=== PATIENT | male | born 1960 | race Hispanic/Latino ===

== ENCOUNTER 2018-12-07 10:09 | Emergency (ER) | payer SELFPAY ==
[2018-12-07] MEDS ORDERED: SODIUM CHLORIDE 0.9% 1000 ML 1,000 ML IV ONE ×2 (11:28→11:32)
--- NOTE | 2018-12-07 11:32 | Emergency Department Report ---
ED Seizure HPI - General Chief Complaint: Seizure Stated Complaint: SEIZURE Time Seen by Provider: 12/07/18 11:01 Source: patient, EMS, RN notes reviewed, old records reviewed (ems notes not available at time of chart dictation) Mode of arrival: Stretcher Limitations: Other (patient is somewhat confused) - History of Present Illness Initial Comments: This is a 58-year-old gentleman. This patient is not known to this provider previously. Patient reportedly has a history of seizures. Reportedly takes Keppra and valproic acid. Currently an outpatient psychiatric facility, on a voluntary basis. Patient was seen in this department a few days ago, by my colleague, Dr. Stevenson, for reported seizures. Today, the patient is sent to the ER for repor luis seizure. The patient doesn't really recall what happened. He thinks that he may hit his head, but he is not sure. He denies physical pain. He denies urinary symptoms. He thinks that he is taking his medications Apparently, patient given Ativan in the field by EMS. MD Complaint: possible seizure, other (reported history of seizure) -: Sudden Seizure History: known seizure disorder Place: other Possible Precipitating Event: none Associated Symptoms: confusion Treatments Prior to Arrival: benzodiazepines - Related Data Previous Rx's Medication Instructions Recorded Last Taken Type levETIRAcetam [Keppra TAB] 1,000 mg PO BID #60 tab 12/07/18 Unknown Rx Allergies Allergy/AdvReac Type Severity Reaction Status Date / Time No Known Allergies Allergy Unverified 12/03/18 17:19 ED Review of Systems ROS: Stated complaint: SEIZURE Other details as noted in HPI Constitutional: malaise. denies: fever Eyes: denies: eye discharge ENT: denies: epistaxis Respiratory: denies: wheezing Cardiovascular: denies: syncope Gastrointestinal: denies: abdominal pain, nausea, vomiting Genitourinary: denies: dysuria Musculoskeletal: denies: myalgia Neurological: confusion Psychiatric: denies: homicidal thoughts, suicidal thoughts ED Past Medical Hx - Past Medical History Previous Medical History?: Yes Hx Seizures: Yes Additional medical history: Anxiety, depression - Surgical History Past Surgical History?: No - Social History Smoking Status: Never Smoker Substance Use Type: None - Medications Home Medications: Home Medications Medication Instructions Recorded Confirmed Last Taken Type levETIRAcetam [Keppra TAB] 1,000 mg PO BID #60 tab 12/07/18 Unknown Rx ED Physical Exam - General Limitations: Other (patient somewhat confused) General appearance: alert, in no apparent distress - Head Head exam: Present: atraumatic, normocephalic - Eye Eye exam: Present: normal appearance, EOMI. Absent: nystagmus - ENT ENT exam: Present: normal exam, normal orophraynx, mucous membranes moist, normal external ear exam - Neck Neck exam: Present: normal inspection - Respiratory Respiratory exam: Present: normal lung sounds bilaterally. Absent: respiratory distress - Cardiovascular Cardiovascular Exam: Present: normal rhythm, tachycardia, normal heart sounds. Absent: systolic murmur, diastolic murmur, rubs, gallop - GI/Abdominal GI/Abdominal exam: Present: soft. Absent: distended, tenderness, guarding, rebound, rigid, pulsatile mass - Rectal Rectal exam: Present: deferred - Extremities Exam Extremities exam: Present: normal inspection, full ROM, other (2+ pulses noted in the bilateral upper, lower extremities. Compartments soft. No long bony tenderness. The pelvis is stable.). Absent: pedal edema, joint swelling, calf tenderness - Back Exam Back exam: Present: normal inspection, full ROM. Absent: tenderness, CVA tenderness (R), CVA tenderness (L), paraspinal tenderness, vertebral tenderness - Neurological Exam Neurological exam: Present: alert, other (Extraocular movements intact. Tongue midline. No facial droop. Facial sensation intact to light touch in the V1, V2, V3 distribution bilaterally. 5 and 5 strength in 4 extremities.. Sensation is intact to light touch in 4 extremities.). Absent: motor sensory deficit - Psychiatric Psychiatric exam: Present: flat affect - Skin Skin exam: Present: warm, dry, intact, normal color. Absent: rash ED Course Vital Signs 12/07/18 12/07/18 12/07/18 10:15 10:53 11:58 Temperature 98 F Pulse Rate 92 H 98 H Respiratory 16 16 16 Rate Blood Pressure 95/68 Blood Pressure 106/69 [Left] O2 Sat by Pulse 95 97 Oximetry 12/07/18 12/07/18 12:20 13:57 Temperature Pulse Rate 81 89 Respiratory 12 12 Rate Blood Pressure Blood Pressure 119/77 114/72 [Left] O2 Sat by Pulse 98 99 Oximetry - Reevaluation(s) Reevaluation #1: 12/07/18 13:32 Differential diagnosis, including but not limited to: Breakthrough seizure, medication noncompliance, subtherapeutic medication level, intracranial injury, cervical spine injury, postictal confusion Assessment and plan: 58-year-old gentleman, reportedly sent to the ER for possible breakthrough seizure. Patient was found to be somewhat tachycardic and hypotensive initially, and this is improved with IV fluids. No additional convulsive events are noted in the emergency department. He is loaded with Keppra and valproic acid. Initially somewhat postictal and confused, CT scan of the brain and cervical spine have been ordered. Recent laboratory studies reviewed and appreciated, no suggestion of urinary tract infection noted. Patient has been in this department for a few hours, without additional convulsive event. 12/07/18 13:37 Reevaluation #2: 12/07/18 15:08 No additional convulsive movements noted. CT scan of the brain, cervical spine negative for acute disease. Patient will be discharged at this point time, he'll need to follow up as an outpatient. ED Medical Decision Making - Lab Data Result diagrams: 12/07/18 11:09 Vital Signs 12/07/18 12/07/18 12/07/18 10:15 10:53 11:58 Temperature 98 F Pulse Rate 92 H 98 H Respiratory 16 16 16 Rate Blood Pressure 95/68 Blood Pressure 106/69 [Left] O2 Sat by Pulse 95 97 Oximetry 12/07/18 12:20 Temperature Pulse Rate 81 Respiratory 12 Rate Blood Pressure Blood Pressure 119/77 [Left] O2 Sat by Pulse 98 Oximetry Lab Results 12/07/18 12/07/18 12/07/18 Range/Units 11:09 11:09 11:09 Sodium 143 (137-145) mmol/L Potassium 3.9 (3.6-5.0) mmol/L Chloride 101.5 (98-107) mmol/L Carbon Dioxide 31 H (22-30) mmol/L Anion Gap 14 mmol/L BUN 17 (9-20) mg/dL Creatinine 0.8 (0.8-1.5) mg/dL Estimated GFR > 60 ml/min BUN/Creatinine Ratio 21 % Glucose 111 H (75-100) mg/dL Calcium 9.7 (8.4-10.2) mg/dL Total Creatine Kinase 269 H (55-170) units/L Salicylates < 0.3 L (2.8-20.0) mg/dL Acetaminophen < 5.0 L (10.0-30.0) ug/mL Valproic Acid 49.0 L (50-100) ug/mL - EKG Data -: EKG Interpreted by Me EKG shows normal: sinus rhythm Rate: normal - EKG Data 12/07/18 13:31 There is no prior EKG available for comparison. This is a sinus rhythm, 95 bpm, normal axis, QTC is within normal limits, there is poor R progression, the EKG is abnormal, the EKG is not consistent with ST elevation myocardial infarction. - Radiology Data Radiology results: pending Critical care attestation.: If time is entered above; I have spent that time in minutes in the direct care of this critically ill patient, excluding procedure time. ED Disposition Clinical Impression: Seizure, On valproic acid therapy Disposition: TO HOME OR SELFCARE Is pt being admited?: No Does the pt Need Aspirin: No Condition: Stable Additional Instructions: Do not drive or operate motor vehicles for the next 6 months. Recommend following up with an outpatient primary care doctor or neurologist for breakthrough seizures within the next 7-10 days. Recommend increasing Keppra to 1000 mg twice daily. Recommend withholding/de-escalating medications that lower seizure threshold. Please follow up with the primary care doctor or neurologist within the next 7- 10 days. Return to the emergency room right away with new, worsening or different symptoms, or symptoms not present on the initial emergency room ev aluation. Prescriptions: levETIRAcetam [Keppra TAB] 1,000 mg PO BID #60 tab Referrals: GERBER ELAM MD [Staff Physician] - 3-5 Days ESTEBAN MARCOS MD [Referring] - 3-5 Days FANNIE PIEDRA MD [Staff Physician] - 3-5 Days
[2018-12-07] MEDS ORDERED: levETIRAcetam 1,000 MG in DEXTROSE 5% IN WATER 100 ML IV SCH (12:00)
[2018-12-07] MEDS ORDERED: levETIRAcetam 1000 MG/NS 0.75% 1,000 MG/100 ML BAG IV ONE (12:00)
[2018-12-07 12:04] LABS: BUN/Creatinine Ratio 21; Blood Urea Nitrogen 17 mg/dL (9-20); Calcium 9.7 mg/dL (8.4-10.2); Hemolysis Index 13
[2018-12-07] MEDS ORDERED: VALPROATE SODIUM 500 MG in SODIUM CHLORIDE 0.9% 100 ML IV ONE (13:28)
[2018-12-07 14:05] VITALS: BP 114/72
--- NOTE | 2018-12-07 14:16 | Cat Scan Report ---
CT BRAIN: 12/07/2018 INDICATION / CLINICAL INFORMATION: sz head trauma. COMPARISON: None available. 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 Ventricles and sulci are normal in size and shape for a patient of this age. There is no evidence of hemorrhage or mass. The patient has a 3.9 cm arachnoid cyst in the anterior aspect of the left middle cranial fossa. This is generally considered to be of no clinical significance. EXTRACRANIAL STRUCTURES: Unremarkable. IMPRESSION: No acute abnormality. All CT scans at this location are performed using dose reduction to ALARA by means of automated expos ure control. Signer Name: Yanick Barroso MD Signed: 12/07/2018 2:12 PM Workstation Name: [id number]
--- NOTE | 2018-12-07 14:21 | Cat Scan Report ---
CT CERVICAL SPINE: 12/07/2018 INDICATION / CLINICAL INFORMATION: sz head trauma, post ictal confusion. COMPARISON: None available. FINDINGS: CT images of the cervical spine were obtained. Images are evaluated in the axial, coronal, and sagit aristides planes. There is no evidence of acute traumatic injury. Mild left convex scoliosis of the cervical spine is present. Reversal of cervical lordosis is centere d at C5-6. Some degenerative disc space narrowing and osteophyte formation is present at the C3-4-5, C5-6, and C 6-7 levels. LEVEL BY LEVEL ANALYSIS: . CRANIOCERVICAL JUNCTION: Unremarkable. PARASPINAL STRUCTURES: Unremarkable IMPRESSION: No acute abnormality. Degenerative changes noted. All CT scans at this location are performed using dose reduction to ALARA by means of automated expos ure control. Signer Name: Yanick Barroso MD Signed: 12/07/2018 2:17 PM Workstation Name: [id number]
== END 2018-12-07 17:23 | disposition home or self-care (01) ==
LOC: ED 10:09
DX: R56.9 Unspecified convulsions (principal)
CPT/HCPCS: 36415; 70450; 72125; 80048; 80164; 82550; 93005; 93010; 96365; 96367; 99285; J1953; J7030; 80320; G0480

== ENCOUNTER 2021-06-05 07:06 | Emergency (ER) | payer OTHER, MEDICARE ==
[2021-06-05] MEDS ORDERED: ALBUTEROL 2.5 MG/3 ML NEBU IH ONE (07:53)
[2021-06-05] MEDS ORDERED: IPRATROPIUM 0.02% NEBU 2.5 ML IH ONE (07:53)
[2021-06-05] MEDS ORDERED: HYDROcodone/ACETAMINOPHEN 5-325 MG TAB PO ONE (07:56)
--- NOTE | 2021-06-05 07:56 | Emergency Department Report ---
ED Asthma HPI - General Chief Complaint: Dyspnea/Respdistress Stated Complaint: CAROLYN PUI?: No Time Seen by Provider: 06/05/21 07:36 Source: patient, EMS Mode of arrival: Stretcher Limitations: No Limitations - History of Present Illness Initial Comments: Chief complaint: Shortness of breath HPI: This is a 60-year-old male with history of asthma, seizure, anxiety, depression who presents with shortness of breath wheezing cough for several days. He has had subjective fever chills. Also has sore throat. He has been vaccinated against COVID-19. He has chronic back pain. Coughing has exacerbated his back pain. MD Complaint: "asthma attack", shortness of breath, wheezing -: Gradual, days(s) (Several days) Asthma History: adult onset Severity: severe Context: recent URI Associated Symptoms: productive cough Treatments Prior to Arrival: other (EMS administered bronchodilator therapy, IV steroid, IV magnesium) - Related Data Previous Rx's Medication Instructions Recorded Last Taken Type levETIRAcetam [Keppra TAB] 1,000 mg PO BID #60 tab 12/07/18 Unknown Rx DOXYCYCLINE Hyclate [Vibramycin 100 mg PO Q12HR 7 Days #14 capsule 06/05/21 Unknown Rx CAP] Allergies Allergy/AdvReac Type Severity Reaction Status Date / Time latex Allergy Anaphylaxis Verified 06/05/21 07:26 ED Review of Systems ROS: Stated complaint: CAROLYN Other details as noted in HPI Comment: All other systems reviewed and negative Constitutional: chills, fever ENT: throat pain Respiratory: cough, shortness of breath, wheezing Cardiovascular: denies: chest pain Gastrointestinal: denies: abdominal pain, nausea, vomiting Musculoskeletal: back pain ED Past Medical Hx - Past Medical History Previous Medical History?: Yes Hx Seizures: Yes Hx Asthma: Yes Additional medical history: Anxiety, depression - Surgical History Past Surgical History?: No - Family History Family history: hypertension - Social History Smoking Status: Never Smoker Substance Use Type: None - Medications Home Medications: Home Medications Medication Instructions Recorded Confirmed Last Taken Type levETIRAcetam [Keppra TAB] 1,000 mg PO BID #60 tab 12/07/18 Unknown Rx DOXYCYCLINE Hyclate [Vibramycin 100 mg PO Q12HR 7 Days #14 capsule 06/05/21 Unknown Rx CAP] ED Physical Exam - General Limitations: No Limitations General appearance: alert, in no apparent distress, other (Speaking full word sentences, frequent cough) - Head Head exam: Present: atraumatic, normocephalic - Eye Eye exam: Present: normal appearance - ENT ENT exam: Present: mucous membranes moist - Neck Neck exam: Present: normal inspection, full ROM - Respiratory Respiratory exam: Present: respiratory distress, wheezes, prolonged expiratory. Absent: rales, rhonchi, accessory muscle use, decreased breath sounds - Cardiovascular Cardiovascular Exam: Present: regular rate, normal rhythm, normal heart sounds. Absent: systolic murmur, diastolic murmur, rubs, gallop - GI/Abdominal GI/Abdominal exam: Present: soft, normal bowel sounds. Absent: distended, tenderness, guarding, rebound - Rectal Rectal exam: Present: deferred - Extremities Exam Extremities exam: Present: normal inspection - Back Exam Back exam: Present: normal inspection - Neurological Exam Neurological exam: Present: alert, oriented X3 - Psychiatric Psychiatric exam: Present: normal affect, normal mood - Skin Skin exam: Present: warm, dry, intact, normal color. Absent: rash ED Course Vital Signs 06/05/21 06/05/21 07:24 08:12 Temperature 97.6 F Pulse Rate 110 H 90 Respiratory 20 20 Rate Blood Pressure 142/82 121/70 [Left] O2 Sat by Pulse 96 96 Oximetry ED Medical Decision Making - Lab Data Result diagrams: 06/05/21 08:30 06/05/21 08:30 Laboratory Results - last 24 hr 06/05/21 06/05/21 08:30 08:30 WBC 9.7 RBC 4.62 Hgb 13.7 Hct 42.3 MCV 92 MCH 30 MCHC 32 RDW 14.0 Plt Count 289 Lymph % (Auto) 11.0 L Falls % (Auto) 2.4 Eos % (Auto) 3.9 Baso % (Auto) 0.4 Lymph # (Auto) 1.1 L Falls # (Auto) 0.2 Eos # (Auto) 0.4 Baso # (Auto) 0.0 Seg Neutrophils % 82.3 H Seg Neutrophils # 8.0 H Sodium 140 Potassium 3.6 Chloride 103.9 Carbon Dioxide 22 Anion Gap 18 BUN 10 Creatinine 0.8 Estimated GFR > 60 BUN/Creatinine Ratio 13 Glucose 137 H Calcium 9.4 - Radiology Data Radiology results: report reviewed Patient Name: MILAGRO VILLAVICENCIO Gender: Male Date of : 1960 Referring Provider: DALIA CROWDER Organization: [facility] Accession Number: [id number] Requested Date: June 05, 2021 07:53 Report Status: Final Requested Procedure: 1 Procedure Description: XR chest 1V ap Modality: XR Findings Reporting MD: Mauro Walker Dictation Time: June 05, 2021 07:48 Centrifugal Machine Tender: Not available [place] Machine Operator Date: CHEST 1 VIEW 06/05/2021 7:46 AM INDICATION / CLINICAL INFORMATION: cough fever sputum production. COMPARISON: None available. FINDINGS: SUPPORT DEVICES: None. HEART / MEDIASTINUM: No significant abnormality. LUNGS / PLEURA: No significant pulmonary or pleural abnormality. No pneumothora x. ADDITIONAL FINDINGS: No significant additional findings. IMPRESSION: 1. No acute findings. Signer Name: Mauro aWlker DO Signed: 06/05/2021 7:48 AM Workstation Name: [id number] - Medical Decision Making Acute bronchitis: Patient received additional therapy in emergency department including albuterol Atrovent. Patient received Solu-Medrol magnesium prior to arrival. Patient will be treated with prednisone taper with doxycycline. Patient received 1 dose of [place] for chronic back pain Critical care attestation.: If time is entered above; I have spent that time in minutes in the direct care of this critically ill patient, excluding procedure time. ED Disposition Clinical Impression: Acute bronchitis, Lumbar degenerative disc disease Disposition: HOME / SELF CARE / HOMELESS Is pt being admited?: No Does the pt Need Aspirin: No Condition: Stable Instructions: Acute Bronchitis (ED), Acute Bronchitis, Adult, [id number] Prescriptions: DOXYCYCLINE Hyclate [Vibramycin CAP] 100 mg PO Q12HR 7 Days #14 capsule Referrals: NICK DERSA MD [Staff Physician] - 3-5 Days
[2021-06-05 08:43] LABS: Basophils % (Auto) 0.4 % (0.0-1.8); Eosinophils # (Auto) 0.4 K/mm3 (0.0-0.4); Eosinophils % (Auto) 3.9 % (0.0-4.3); Hematocrit 42.3 % (35.5-45.6); Hemoglobin 13.7 gm/dl (11.8-15.2); Lymphocytes # (Auto) 1.1 K/mm3 (1.2-5.4); Mean Corpuscular HGB Conc 32 % (32-34); Mean Corpuscular Volume 92 fl (84-94); Monocytes # (Auto) 0.2 K/mm3 (0.0-0.8); Monocytes % (Auto) 2.4 % (0.0-7.3); Platelet Count 289 K/mm3 (140-440); Red Blood Count 4.62 M/mm3 (3.65-5.03)
--- NOTE | 2021-06-05 08:52 | XRay Report ---
CHEST 1 VIEW 06/05/2021 7:46 AM INDICATION / CLINICAL INFORMATION: cough fever sputum production. COMPARISON: None available. FINDINGS: SUPPORT DEVICES: None. HEART / MEDIASTINUM: No significant abnormality. LUNGS / PLEURA: No significant pulmonary or pleural abnormality. No pneumothorax. ADDITIONAL FINDINGS: No significant additional findings. IMPRESSION: 1. No acute findings. Signer Name: Mauro Walker DO Signed: 06/05/2021 8:48 AM Workstation Name: [id number]
[2021-06-05 09:05] LABS: BUN/Creatinine Ratio 13; Blood Urea Nitrogen 10 mg/dL (9-20); Calcium 9.4 mg/dL (8.4-10.2); Hemolysis Index 3
[2021-06-05 12:55] VITALS: BP 113/67
== END 2021-06-05 12:53 | disposition home or self-care (01) ==
LOC: ED 07:06
DX: J20.9 Acute bronchitis, unspecified (principal); M51.36 Other intervertebral disc degeneration, lumbar region; J45.909 Unspecified asthma, uncomplicated; F41.9 Anxiety disorder, unspecified; F32.9 Major depressive disorder, single episode, unspecified; Z91.013 Allergy to seafood; Z79.899 Other long term (current) drug therapy
CPT/HCPCS: 36415; 71045; 80048; 85025; 94644; 99284